=== PATIENT | female | born 1985 | race Caucasian/White ===

== ENCOUNTER 2016-06-17 06:22 | Inpatient (IN) | payer MEDICAID ==
[2016-06-14 10:01] LABS: APPEARANCE,URINE CLEAR; BILIRUBIN,URINE NEGATIVE (NEGATIVE); GLUCOSE, URINE NEGATIVE (NEGATIVE); KETONES,URINE NEGATIVE (NEGATIVE); LEUKOCYTE ESTERASE,URINE NEGATIVE (NEGATIVE); NITRITE,URINE NEGATIVE (NEGATIVE); PROTEIN,URINE NEGATIVE (NEGATIVE); UROBILINOGEN,URINE NEGATIVE mg/dL (<2.0)
[2016-06-14 10:02] LABS: ABSOLUTE LYMPHOCYTES (AUTO) 1.6 10^3/uL (0.5-4.7); ABSOLUTE MONOCYTES (AUTO) 0.4 10^3/uL (0.1-1.4); ABSOLUTE NEUT (AUTO) 4.8 10^3/uL (1.7-8.2); BASOPHILS % (AUTO) 0.6 % (0-2); EOSINOPHILS % (AUTO) 0.5 % (0-6); HEMATOCRIT 34.2 % (36.0-47.0); HGB HCT DIFFERENCE -1.2; LYMPHOCYTES % (AUTO) 23.5 % (13-45); MEAN CORPUSCULAR HEMOGLOBIN 27.8 pg (27.0-33.4); MEAN CORPUSCULAR HGB CONC 32.1 g/dL (32.0-36.0); MEAN CORPUSCULAR VOLUME 87 fl (80-97); MONOCYTES % (AUTO) 5.4 % (3-13); RED BLOOD COUNT 3.95 10^6/uL (3.72-5.28); RED CELL DISTRIBUTION WIDTH 14.3 % (11.5-14.0); WHITE BLOOD COUNT 6.9 10^3/uL (4.0-10.5)
[2016-06-14 10:21] LABS: URINE BARBITURATES SCREEN NEGATIVE; URINE METHADONE SCREEN NEGATIVE; URINE PHENCYCLIDINE SCREEN NEGATIVE
[2016-06-17] MEDS ORDERED: CEFAZOLIN INJ 1 GM VIAL ONE (06:25)
[2016-06-17] MEDS ORDERED: PROPOFOL INJ 200 MG/20 ML VIAL IV ONE (07:41)
[2016-06-17] MEDS ORDERED: FENTANYL CITRATE INJ/PF 100 MCG/2 ML AMPUL ONE (07:42)
[2016-06-17] MEDS ORDERED: MIDAZOLAM 2 MG/2 ML INJ ONE (07:42)
[2016-06-17] MEDS ORDERED: OXYTOCIN 10 UNIT/ML VIAL ONE (07:42)
[2016-06-17] MEDS ORDERED: PROMETHAZINE HCL INJ 25 MG/1 ML VIAL IV PRN (09:07)
[2016-06-17] MEDS ORDERED: HYDROMORPHONE HCL INJ/PF 2 MG/ML AMPULE IV PRN (09:07)
[2016-06-17] MEDS ORDERED: ACETAMINOPHEN 325 MG TABLET PO PRN (09:07)
[2016-06-17] MEDS ORDERED: DIPH/PERTUSS(ACELL)/TETANUS VAC/PF 0.5 ML SYR (>=10YO) IM PRN (09:07)
[2016-06-17] MEDS ORDERED: ACETAMINOPHEN 100 ML IV PRN (09:07)
[2016-06-17] MEDS ORDERED: SIMETHICONE 80 MG TAB.CHEW PO PRN (09:07)
[2016-06-17] MEDS ORDERED: MEASLES,MUMPS&RUBELLA VACC/PF 0.5 ML VIAL SUBCUT PRN (09:07)
[2016-06-17] MEDS ORDERED: OXYTOCIN/NORMAL SALINE 1,000 ML IV PRN (09:07)
[2016-06-17] MEDS ORDERED: RINGERS SOLUTION,LACTATED 1,000 ML IV PRN (09:07)
[2016-06-17] MEDS ORDERED: OXYCODONE-ACETAMINOPHEN 5-325 MG TABLET PO PRN (09:07)
--- NOTE | 2016-06-17 09:17 | Operative Report ---
Operative Report DATE OF SURGERY: 06/17/16 PREOPERATIVE DIAGNOSIS: Repeat tubal ligation to prevent risk for uterine rupture POSTOPERATIVE DIAGNOSIS: Same OPERATION: Repeat via low transverse uterine incision and tubal ligation with Filshie clips SURGEON: DARLENE BAIRES JUDICIAL ASSISTANT: OR staff TISSUE REMOVED OR ALTERED: Placenta and fallopian tubes COMPLICATIONS: None ESTIMATED BLOOD LOSS: 250 mL INTRAOPERATIVE FINDINGS: Normal pelvis and normal tubes and ovaries PROCEDURE: Patient was taken to the OR and placed in supine position after her spinal anesthesia. She is prepared and draped in sterile fashion. Brown was placed for drainage of the bladder. Low transverse incision was made and carried down the level of the fascia. The fascial incision was made with knife and extended bilaterally with curved Hammond scissors. The fascia was off the rectus muscles using sharp and blunt dissection. The rectus muscles are in the midline. The peritoneum was entered without incident. Bladder blade was placed in uterine segment was identified. A low transverse incision was made creating a bladder flap. Bladder blade was placed low transverse uterine incision was made with the knife and extended with fingertips. The baby was delivered with some fundal pressure. Mouth and nose were suctioned free. The cord is doubly clamped and cut. Baby is passed off to the illuminator in attendance. The placenta was manually extracted with trailing membranes. The uterus was not externalized. Uterine contents wiped free. Uterus was closed with a running locking layer of 0 chromic suture using the second layer to imbricate the first completing a double layer closure of the uterus. Each fallopian tube was identified and followed out to its fimbriated end. A Filshie clip was placed at the mid isthmic portion on each tube. The abdominal wall peritoneum was closed with running 2-0 chromic stitch. Fascia was closed with a running 0 Vicryl in 2 segments. Jessie's layer was brought together with 0 plain gut stitch and the skin was closed with running subcuticular 4-0 undyed Vicryl stitch. The wound was dressed mother and baby did well.
[2016-06-17] MEDS ORDERED: ACETAMINOPHEN 100 ML IV ONE (09:22)
[2016-06-17] MEDS ORDERED: KETOROLAC TROMETHAMINE INJ/PF 30 MG/1 ML SDV ONE (09:48)
[2016-06-17] MEDS: KETOROLAC TROMETHAMINE INJ/PF 30 MG/1 ML SDV IV SCH ×2 (10:11→17:05)
[2016-06-17] MEDS: DOCUSATE SODIUM 100 MG CAPSULE PO SCH ×2 (10:52→17:05)
[2016-06-17] MEDS: PRENATAL VITAMIN W-O CA NO5/FE FUMARATE/FA CAPSULE PO SCH (10:52)
[2016-06-17] MEDS ORDERED: LIDOCAINE 2% INJ-PF (20 MG/ML) 10 ML AMPUL ONE (11:57)
[2016-06-17] MEDS ORDERED: PHENYLEPHRINE HCL INJ/PF 10 MG/1 ML SDV ONE (11:57)
[2016-06-17] MEDS ORDERED: ONDANSETRON HCL INJ/PF 4 MG/2 ML SDV ONE ×2 (11:57→15:26)
[2016-06-17] MEDS ORDERED: ONDANSETRON HCL 8 MG TABLET PO PRN (15:35)
[2016-06-17] MEDS ORDERED: ONDANSETRON HCL INJ/PF 4 MG/2 ML SDV IV PRN (15:35)
--- NOTE | 2016-06-17 19:01 | L&D Flow Sheet ---
LD Flowsheet Datetime Report Generated by CPN: 06/17/2016 19:00 Datetime: 06/17/2016 11:00 Stage of : Recovery (Sommer Fifi, ) [facility] Pain Presence: Intermittent ([facility], RN) Pain Type: Cramping ([facility], ) Pain Location: Abdomen ([facility], ) Pain Goal: 1 ([facility], RN) Pain Relief Measures: Comfort Measures [facility] Datetime: 06/17/2016 10:52 Pulse: 57 (QS system process) SpO2 (%): 100 (QS system process) Datetime: 06/17/2016 10:47 Pulse: 57 (QS system process) SpO2 (%): 100 (QS system process) Datetime: 06/17/2016 10:45 Stage of : Recovery (Sommer aClix RN) Pain Scale: 1 (Sommer Calix RN) Pain Presence: Intermittent (Sommer Calix RN) Pain Type: Cramping (Sommer Calix RN) Pain Location: Abdomen (Sommer Calix RN) Pain Goal: 1 (Sommer Calix RN) Pain Relief Measures: Comfort Measures (Sommer Calix RN) Datetime: 06/17/2016 10:43 NBP Sys/Pat/Mean (mmHg): 112 (QS system process) : 75 (QS system process) : 90 (QS system process) Pulse: 63 (QS system process) Datetime: 06/17/2016 10:42 Pulse: 61 (QS system process) SpO2 (%): 100 (QS system process) Datetime: 06/17/2016 10:40 Stage of : Recovery (Sommer Dry Prong, RN) Datetime: 06/17/2016 10:37 Pulse: 62 (QS system process) SpO2 (%): 100 (QS system process) Datetime: 06/17/2016 10:32 Pulse: 56 (QS system process) SpO2 (%): 100 (QS system process) Datetime: 06/17/2016 10:30 Stage of : Recovery (Sommer Calix, CAT) Pain Scale: 2 (Sommer Calix, CAT) Pain Presence: Intermittent (Sommer Calix, CAT) Pain Type: Cramping (Sommer Calix RN) Pain Location: Abdomen (Sommer Calix, CAT) Pain Goal: 1 (Sommer Calix RN) Pain Relief Measures: Comfort Measures (Sommer Calix, CAT) Datetime: 06/17/2016 10:28 Stage of : Recovery (Sommer Calix, RN) NBP Sys/Pat/Mean (mmHg): 107 (QS system process) : 71 (QS system process) : 85 (QS system process) Pulse: 62 (QS system process) Respirations: 14 (Sommer Calix, ) Datetime: 06/17/2016 10:27 Pulse: 62 (QS system process) SpO2 (%): 100 (QS system process) Datetime: 06/17/2016 10:22 Pulse: 60 (QS system process) SpO2 (%): 99 (QS system process) Datetime: 06/17/2016 10:17 Pulse: 61 (QS system process) SpO2 (%): 99 (QS system process) Datetime: 06/17/2016 10:14 Stage of : Recovery (Sommer Calix RN) NBP Sys/Pat/Mean (mmHg): 114 (QS system process) : 74 (QS system process) : 87 (QS system process) Pulse: 62 (QS system process) Respirations: 12 (Sommer Calix RN) Pain Scale: 3 (Sommer Calix RN) Pain Presence: Intermittent (Sommer Calix RN) Pain Type: Cramping (Sommer Calix RN) Pain Location: Abdomen (Sommer Calix RN) Pain Goal: 1 (Sommer Calix RN) Pain Relief Measures: Comfort Measures (Sommer Calix RN) Datetime: 06/17/2016 10:12 Pulse: 62 (QS system process) SpO2 (%): 99 (QS system process) Datetime: 06/17/2016 10:11 Stage of : Recovery (Sommer Calix, ) Pain Scale: 3 (Sommer Calix, ) Pain Presence: Intermittent (Sommer Calix, ) Pain Type: Cramping (Sommer Calix, ) Pain Location: Abdomen (Sommer Calix, ) Pain Goal: 1 (Sommer Calix, ) Pain Relief Measures: Pain Medication Given; Comfort Measures (Sommer Dry Prong, ) Datetime: 06/17/2016 10:07 Pulse: 66 (QS system process) SpO2 (%): 98 (QS system process) Datetime: 06/17/2016 10:02 Pulse: 63 (QS system process) SpO2 (%): 99 (QS system process) Datetime: 06/17/2016 10:00 Stage of : Recovery (Sommer Fifi, RN) Pain Scale: 2 (Sommer Dry Prong, RN) Pain Presence: Intermittent (Sommer Dry Prong, RN) Pain Type: Cramping; Ache (Sommer Fifi, RN) Pain Location: Abdomen (Sommer Fifi, RN) Pain Goal: 1 (Sommer Dry Prong, RN) Pain Relief Measures: Comfort Measures (Sommer Dry Prong, RN) Datetime: 06/17/2016 09:58 Stage of : Recovery (Sommer Calix, RN) NBP Sys/Pat/Mean (mmHg): 109 (QS system process) : 76 (QS system process) : 88 (QS system process) Pulse: 62 (QS system process) Respirations: 16 (Sommer Patiñoard, RN) Datetime: 06/17/2016 09:57 Pulse: 68 (QS system process) SpO2 (%): 98 (QS system process) Datetime: 06/17/2016 09:52 Pulse: 72 (QS system process) SpO2 (%): 97 (QS system process) Datetime: 06/17/2016 09:47 Pulse: 64 (QS system process) SpO2 (%): 97 (QS system process) Datetime: 06/17/2016 09:45 Stage of : Recovery (Sommer Calix RN) Pain Scale: 3 (Sommer Calix RN) Pain Presence: Intermittent (Sommer Calix RN) Pain Type: Cramping; Ache (Sommer Calix RN) Pain Location: Abdomen (Sommer Calix RN) Pain Goal: 1 (Sommer Calix RN) Pain Relief Measures: Comfort Measures (Sommer Calix RN) Datetime: 06/17/2016 09:43 Stage of : Recovery (Sommer Calix RN) NBP Sys/Pat/Mean (mmHg): 110 (QS system process) : 72 (QS system process) : 85 (QS system process) Pulse: 71 (QS system process) Respirations: 16 (Sommer Dry Prong, RN) Datetime: 06/17/2016 09:42 Pulse: 67 (QS system process) SpO2 (%): 97 (QS system process) Datetime: 06/17/2016 09:37 Pulse: 70 (QS system process) SpO2 (%): 97 (QS system process) Datetime: 06/17/2016 09:36 Stage of : Recovery (Sommer Calix, CAT) Pain Scale: 2 (Sommer Calix RN) Pain Presence: Intermittent (Sommer Dry Prong, RN) Pain Type: Cramping (Sommer Patiñoard, RN) Pain Location: Abdomen (Sommer Patiñoard, RN) Pain Goal: 1 (Sommer Patiñoard, RN) Pain Relief Measures: Pain Medication Given; Comfort Measures (Sommer Patiñoard, RN) Datetime: 06/17/2016 09:34 Stage of : Recovery (Sommer Calix, RN) Datetime: 06/17/2016 09:32 Pulse: 69 (QS system process) SpO2 (%): 98 (QS system process) Datetime: 06/17/2016 09:29 Stage of : Recovery (Sommer Calix RN) NBP Sys/Pat/Mean (mmHg): 104 (QS system process) : 69 (QS system process) : 83 (QS system process) Pulse: 61 (QS system process) Respirations: 14 (Sommer Calix RN) Pain Scale: 0 (Sommer Calix RN) Pain Presence: None/Denies (Sommer Calix RN) Pain Type: N/A (Sommer Calix RN) Pain Goal: 1 (Sommer Calix RN) Pain Relief Measures: Comfort Measures (Sommer Calix RN) Datetime: 06/17/2016 09:27 Pulse: 67 (QS system process) SpO2 (%): 100 (QS system process) Datetime: 06/17/2016 09:22 Pulse: 66 (QS system process) SpO2 (%): 99 (QS system process) Datetime: 06/17/2016 09:17 Pulse: 68 (QS system process) SpO2 (%): 100 (QS system process) Datetime: 06/17/2016 09:15 Stage of : Recovery (Sommer Calix, RN) Pain Scale: 0 (Sommer Calix, RN) Pain Presence: None/Denies (Sommer Fifi, RN) Pain Type: N/A (Sommer Patiñoard, RN) Pain Goal: 1 (Sommer Patiñoard, RN) Pain Relief Measures: Comfort Measures (Sommer Calix, RN) Datetime: 06/17/2016 09:12 Stage of : Recovery (Sommer Calix RN) NBP Sys/Pat/Mean (mmHg): 109 (QS system process) : 63 (QS system process) : 80 (QS system process) Pulse: 69 (QS system process) Pulse: 72 (QS system process) Respirations: 12 (Sommer Calix RN) SpO2 (%): 98 (QS system process) Datetime: 06/17/2016 09:07 Stage of : Recovery (Sommer Calix RN) NBP Sys/Pat/Mean (mmHg): 108 (QS system process) : 63 (QS system process) : 78 (QS system process) Pulse: 77 (QS system process) Pulse: 74 (QS system process) SpO2 (%): 99 (QS system process) Temperature (F): 97.6 (Sommer Calix RN) Temperature (C): 36.4 (QS system process) Temperature Route: Oral (Sommer Calix RN) Pain Scale: 0 (Sommer Calix RN) Pain Presence: None/Denies (Sommer Calix RN) Pain Type: N/A (Sommer Calix RN) Pain Goal: 1 (Sommer Calix RN) Pain Relief Measures: Comfort Measures (Annotations: T10) (Sommer Calix RN) Datetime: 06/17/2016 09:04 Stage of : Recovery (Sommer Calix RN) NBP Sys/Pat/Mean (mmHg): 111 (QS system process) : 62 (QS system process) : 80 (QS system process) Pulse: 76 (QS system process) Respirations: 14 (Sommer Calix RN) Datetime: 06/17/2016 09:02 Pulse: 76 (QS system process) SpO2 (%): 98 (QS system process) Datetime: 06/17/2016 09:00 Stage of : Recovery (Sommer Calix RN) NBP Sys/Pat/Mean (mmHg): Guerline Perez RN and Sanju Lock CRNA (Sommer Calix RN)
[2016-06-18] MEDS: KETOROLAC TROMETHAMINE INJ/PF 30 MG/1 ML SDV IV SCH (01:28)
--- NOTE | 2016-06-18 06:03 | L&D General Admission ---
General Admit Datetime Report Generated by CPN: 06/18/2016 06:00 INFORMATION Patient Age: 30 (02/11/2016 19:09:QS system process) CARE Height (in): 63 (06/17/2016 15:03:QS system process) ALLERGIES Medication Allergies: No Known Allergies (06/14/2016) (06/17/2016 06:22:QS system process) DEMOGRAPHICS Address: [address] [place] [phone] (02/11/2016 19:09:QS system process) Zipcode: [phone] (02/11/2016 19:09:QS system process) Home (02/11/2016 19:09:QS system process) Work (02/11/2016 19:09:QS system process) SSN: [id number] (02/11/2016 19:09:QS system process) Next of Kin Name: MARCO RIVERA (02/11/2016 19:09:QS system process) Next of Kin (02/11/2016 19:09:QS system process) Next of Kin Relationship: SPO (02/11/2016 19:09:QS system process) Date of : 1985 (02/11/2016 19:09:QS system process) Marital Status: (02/11/2016 19:09:QS system process) Sex: Female (02/11/2016 19:09:QS system process) Race: (02/11/2016 19:09:QS system process) Ethnicity: Non- or (02/11/2016 19:09:QS system process) Restorationism: Other (02/11/2016 19:09:QS system process) Feeding Preference: Breast (06/17/2016 09:28:Barbie Rust RN) Benefit of Breast Feed Discussed: Yes (06/17/2016 09:28:Gely Reno RN) LABS Hemoglobin: 11.0 L (06/14/2016 09:17:QS system process) Hematocrit: 34.2 L (06/14/2016 09:17:QS system process) MCV: 87 (06/14/2016 09:17:QS system process)
[2016-06-18 07:35] LABS: MEAN CORPUSCULAR HEMOGLOBIN 27.6 pg (27.0-33.4); MEAN CORPUSCULAR HGB CONC 32.3 g/dL (32.0-36.0); MEAN CORPUSCULAR VOLUME 85 fl (80-97); RED BLOOD COUNT 3.99 10^6/uL (3.72-5.28); RED CELL DISTRIBUTION WIDTH 14.5 % (11.5-14.0); WHITE BLOOD COUNT 9.5 10^3/uL (4.0-10.5)
[2016-06-18 07:37] LABS: PARTIAL THROMBOPLASTIN TIME 24.4 SEC (23.5-35.8); PROTHROMBIN TIME 12.1 SEC (11.4-15.4)
[2016-06-18 07:48] LABS: CREATININE RESULT 0.75 mg/dL (0.52-1.25)
[2016-06-18] MEDS: IBUPROFEN 800 MG TABLET PO SCH ×3 (08:31→20:56)
[2016-06-18] MEDS ORDERED: ENOXAPARIN SODIUM SUBCUT SCH (10:00)
[2016-06-18] MEDS: DOCUSATE SODIUM 100 MG CAPSULE PO SCH ×2 (11:18→17:53)
[2016-06-18] MEDS: PRENATAL VITAMIN W-O CA NO5/FE FUMARATE/FA CAPSULE PO SCH (11:18)
[2016-06-18] MEDS ORDERED: ENOXAPARIN SODIUM INJ 30 MG/0.3 ML DISP.SYRIN SUBCUT ONE (12:00)
--- NOTE | 2016-06-18 13:45 | PDOC PROGRESS REPORT ---
Subjective-OB Subjective: Post Delivery Day: 30 year old. Denies any needs at this time s/p repeat c section lungs ctab s1s2 no murmur abdominal binding in place incision dry and intact bsx4 no flatus no bm encouraged pt to ambulate reports walking well well eating regular diet anticipate d/c in am Physical Exam (OB) Vital Signs: Temp Pulse Resp BP Pulse Ox 98.6 F 70 16 109/63 98 06/18/16 12:17 06/18/16 12:17 06/18/16 12:17 06/18/16 12:17 06/18/16 12:17 Intake & Output 06/17/16 06/18/16 06/19/16 06:59 06:59 06:59 Intake Total 3025 Output Total 5150 Balance -2125 Weight 63.049 kg - Dressing Removed: No - op site Incision: Dressing - Lochia Lochia Amount: Small 10-25 ml Lochia Color: Rubra/Red - Abdomen Description: Soft Hernia Present: No Fundal Description: Firm, Midline Fundal Height: u/u - u/2 Objective-Diagnostic Laboratory: 06/18/16 07:14 06/18/16 07:14 06/18/16 06/18/16 07:14 07:14 WBC 9.5 RBC 3.99 Hgb 11.0 L Hct 34.0 L MCV 85 MCH 27.6 MCHC 32.3 RDW 14.5 H Plt Count 216 Creatinine 0.75 Est GFR ( Amer) > 60 Est GFR (Non-Af Amer) > 60
[2016-06-18] MEDS: OXYCODONE-ACETAMINOPHEN 5-325 MG TABLET PO PRN ×2 (15:06→22:39)
--- NOTE | 2016-06-18 18:05 | L&D General Admission ---
General Admit Datetime Report Generated by CPN: 06/18/2016 18:00 INFORMATION Patient Age: 30 (02/11/2016 19:09:QS system process) CARE Height (in): 63 (06/18/2016 14:34:QS system process) ALLERGIES Medication Allergies: No Known Allergies (06/14/2016) (06/17/2016 06:22:QS system process) DEMOGRAPHICS Address: [address] [place] [phone] (02/11/2016 19:09:QS system process) Zipcode: [phone] (02/11/2016 19:09:QS system process) Home (02/11/2016 19:09:QS system process) Work (02/11/2016 19:09:QS system process) SSN: [id number] (02/11/2016 19:09:QS system process) Next of Kin Name: MARCO RIVERA (02/11/2016 19:09:QS system process) Next of Kin (02/11/2016 19:09:QS system process) Next of Kin Relationship: SPO (02/11/2016 19:09:QS system process) Date of : 1985 (02/11/2016 19:09:QS system process) Marital Status: (02/11/2016 19:09:QS system process) Sex: Female (02/11/2016 19:09:QS system process) Race: (02/11/2016 19:09:QS system process) Ethnicity: Non- or (02/11/2016 19:09:QS system process) Yarsani: Other (02/11/2016 19:09:QS system process) Feeding Preference: Breast (06/17/2016 09:28:Barbie Rust RN) Benefit of Breast Feed Discussed: Yes (06/17/2016 09:28:Gely Reno RN) LABS Hemoglobin: 11.0 L (06/18/2016 07:14:QS system process) Hematocrit: 34.0 L (06/18/2016 07:14:QS system process) MCV: 85 (06/18/2016 07:14:QS system process)
[2016-06-18] MEDS: ENOXAPARIN SODIUM INJ 30 MG/0.3 ML DISP.SYRIN SUBCUT SCH (22:35)
[2016-06-19] MEDS: IBUPROFEN 800 MG TABLET PO SCH ×2 (03:45→09:48)
--- NOTE | 2016-06-19 06:05 | L&D General Admission ---
General Admit Datetime Report Generated by CPN: 06/19/2016 06:00 INFORMATION Patient Age: 30 (02/11/2016 19:09:QS system process) CARE Height (in): 63 (06/18/2016 14:34:QS system process) ALLERGIES Medication Allergies: No Known Allergies (06/14/2016) (06/17/2016 06:22:QS system process) DEMOGRAPHICS Address: [address] [place] [phone] (02/11/2016 19:09:QS system process) Zipcode: [phone] (02/11/2016 19:09:QS system process) Home (02/11/2016 19:09:QS system process) Work (02/11/2016 19:09:QS system process) SSN: [id number] (02/11/2016 19:09:QS system process) Next of Kin Name: MARCO RIVERA (02/11/2016 19:09:QS system process) Next of Kin (02/11/2016 19:09:QS system process) Next of Kin Relationship: SPO (02/11/2016 19:09:QS system process) Date of : 1985 (02/11/2016 19:09:QS system process) Marital Status: (02/11/2016 19:09:QS system process) Sex: Female (02/11/2016 19:09:QS system process) Race: (02/11/2016 19:09:QS system process) Ethnicity: Non- or (02/11/2016 19:09:QS system process) Zoroastrianism: Other (02/11/2016 19:09:QS system process) Feeding Preference: Breast (06/17/2016 09:28:Barbie Rust RN) Benefit of Breast Feed Discussed: Yes (06/17/2016 09:28:Gely Reno RN) LABS Hemoglobin: 11.0 L (06/18/2016 07:14:QS system process) Hematocrit: 34.0 L (06/18/2016 07:14:QS system process) MCV: 85 (06/18/2016 07:14:QS system process)
[2016-06-19] MEDS: OXYCODONE-ACETAMINOPHEN 5-325 MG TABLET PO PRN (07:57)
[2016-06-19 09:26] VITALS: BP 123/71
[2016-06-19] MEDS: ENOXAPARIN SODIUM INJ 30 MG/0.3 ML DISP.SYRIN SUBCUT SCH (09:47)
[2016-06-19] MEDS: PRENATAL VITAMIN W-O CA NO5/FE FUMARATE/FA CAPSULE PO SCH (09:48)
[2016-06-19] MEDS: DOCUSATE SODIUM 100 MG CAPSULE PO SCH (09:48)
--- NOTE | 2016-06-19 09:56 | PDOC DISCHARGE SUMMARY ---
Final Diagnosis Discharge Date: 06/19/16 - Final Diagnosis (1) Status post repeat low transverse section Is this a current diagnosis for this admission?: Yes (2) Admission for tubal ligation Is this a current diagnosis for this admission?: Yes Discharge Data - Discharge Medication Home Medications: Enoxaparin Sodium [Lovenox] 30 mg SUBCUT BID 07/23/13 Vit#96/Ferrous Fum/FA [ Tablet] 1 each PO DAILY 07/23/13 Acetaminophen [Tylenol 325 mg Tablet] 650 mg PO Q4HP PRN 07/26/13 Ibuprofen [Motrin 800 mg Tablet] 800 mg PO Q8HP PRN #90 tablet 06/19/16 Oxycodone HCl/Acetaminophen [Percocet 5-325 mg Tablet] 1 tab PO Q4HP PRN #30 tablet 06/19/16 Reason(s) for Admission: Ceasarean Section-Repeat, Tubal Ligation Procedures: NST, Ultrasound Intrapartum Procedure(s): : Low Cervical, Transverse, Tubal Ligation - [place]arks Data Baby 1 Female at 1 minute: 8 at 5 minutes: 9 Weight: 3.005 kg Home with Mother: Yes Complications: No - Diagnosis Test Laboratory: Temp Pulse Resp BP Pulse Ox 97.8 F 78 17 123/71 97 06/19/16 09:04 06/19/16 09:04 06/19/16 09:04 06/19/16 09:04 06/19/16 09:04 06/14/16 06/14/16 06/18/16 09:17 09:25 07:14 RBC 3.95 3.99 Hgb 11.0 L 11.0 L Hct 34.2 L 34.0 L Urine Opiates Screen NEGATIVE - Discharge information/Instructions Discharge Activity: Activity As Tolerated, Balance Activity w/Rest, No Driving, No Lifting Over 10 Pounds, No Lifting/Push/Pulling, Pelvic Rest, No tub bath Discharge Diet: As Tolerated, Regular Disposition: HOME, SELF-CARE Follow up with: [facility] in: 1, Weeks - incision check Physical Exam (OB) Vital Signs: Temp Pulse Resp BP Pulse Ox 97.8 F 78 17 123/71 97 06/19/16 09:04 06/19/16 09:04 06/19/16 09:04 06/19/16 09:04 06/19/16 09:04 Intake & Output 06/18/16 06/19/16 06/20/16 06:59 06:59 06:59 Intake Total 3025 Output Total 5150 Balance -2125 - General General Appearance: Appears well In distress: None - Dressing Removed: No - op site Incision: Dressing Closure Type: opsite - Bilateral Tubal Ligation Dressing Removed: Yes - opsite Site: Dressing - Lochia Lochia Amount: Small 10-25 ml Lochia Color: Serosa/Brown - Abdomen Description: Soft Hernia Present: No Bowel Sounds: Normoactive Flatus Presence: Present Stool: No Fundal Description: Firm, Midline Fundal Height: u/u - u/2 - Respiratory Respiratory Status: No respiratory distress Breath sounds: Clear - Cardiovascular Rhythm: Regular Heart Sounds: Normal auscultation - Abdominal Abdominal Notes: BS present - Genitourinary Female External exam: Normal - Extremities Upper extremity: Normal inspection Lower extremities: Normal inspection - Psychological Associated symptoms: Normal affect, Normal mood - bonding well with baby, without difficulty
== END 2016-06-19 13:00 | disposition home or self-care (01) | DRG 765 ==
LOC: 2N 06:22 → 2S 09:04
PROVIDERS: ADMIT Obstetrics & Gynecology; ATTEND Obstetrics & Gynecology
PROC: 0UL70CZ Occlusion of Bilateral Fallopian Tubes with Extraluminal Device, Open Approach (ICD-10-PCS; 2016-06-17)
PROC: 4A1HXCZ Monitoring of Products of Conception, Cardiac Rate, External Approach (ICD-10-PCS; 2016-06-17)
PROC: 10D00Z1 Extraction of Products of Conception, Low, Open Approach (ICD-10-PCS; principal; 2016-06-17 07:45)
DX: O34.211 Maternal care for low transverse scar from previous cesarean delivery (principal); O99.12 Other diseases of the blood and blood-forming organs and certain disorders involving the immune mechanism complicating childbirth; D68.59 Other primary thrombophilia; Z30.2 Encounter for sterilization; Z3A.39 39 weeks gestation of pregnancy; Z37.0 Single live birth
CPT/HCPCS: 1961; 36415; 80307; 81001; 82565; 85025; 85027; 85610; 85730; 86850; 86900; 86901; 90715; 94799; J0131; J1170; J1650; J1885; J2250; J2370; J2405; J2590; J2704; J3010; J3490

== ENCOUNTER 2016-09-16 10:16 | Emergency (ER) | payer MEDICAID ==
--- NOTE | 2016-09-16 11:50 | ER Document Report ---
HPI - HPI Patient complains to provider of: pilonidal cyst Onset: Other - Friday Morning Onset/Duration: Sudden Pain Level: 2 Context: 33-year-old female with history of a pilonidal abscess that had to be incised 9 years ago is here again where there is pain and swelling but not as bad in the same area. No fever or chills Associated Symptoms: None Exacerbated by: Walking Relieved by: Denies Similar symptoms previously: Yes - 9 years ago Recently seen / treated by doctor: No - ROS ROS below otherwise negative: Yes Systems Reviewed and Negative: Yes All other systems reviewed and negative - REPRODUCTIVE LMP: post- Reproductive: REPORTS: : - DERM Skin Color: Normal, [place] Past Medical History - General Information source: Patient - Social History Smoking Status: Never Smoker Frequency of alcohol use: None Drug Abuse: None Lives with: Spouse/Significant other Family History: Reviewed & Not Pertinent Patient has suicidal ideation: No Patient has homicidal ideation: No Renal/ Medical History: Denies: Hx Peritoneal Dialysis Past Surgical History: Reports: Hx Section - Immunizations Hx Diphtheria, Pertussis, Tetanus Vaccination: No - declined Vertical Provider Document - CONSTITUTIONAL Agree With Documented VS: Yes Exam Limitations: No Limitations - INFECTION CONTROL TRAVEL OUTSIDE OF THE [place] IN LAST 30 DAYS: No - HEENT HEENT: Normocephalic - NECK Neck: Supple - RESPIRATORY O2 Sat by Pulse Oximetry: 99 - MUSCULOSKELETAL/EXTREMETIES Musculoskeletal/Extremeties: MAEW, FROM - NEURO Level of Consciousness: Awake, Alert Motor/Sensory: No Motor Deficit, No Sensory Deficit - DERM Integumentary: Warm, Dry, Abscess - Small tender non-red soft tissue swelling at the gluteal crest Course - Vital Signs Vital signs: Temp Pulse Resp BP Pulse Ox 98.2 F 72 16 113/86 H 99 09/16/16 10:44 09/16/16 10:44 09/16/16 10:44 09/16/16 10:44 09/16/16 10:44 Procedures - Incision and Drainage Buttock Time completed: 13:41 Type: Simple Anesthetic type: 1% Lidocaine mL's of anesthetic: 5 Blade size: 11 I&D procedure: Betadine prep applied, Sterile dressing applied - corner of 4 x 4 gauze packing Incision Method: Incision made by scalpel Amount/type of drainage: moderate pus Discharge - Discharge Clinical Impression: I & D pilonidal abscess Condition: Good Disposition: HOME, SELF-CARE Instructions: Abscess ([facility]), Post Incision and Drainage, Trimethoprim-Sulfa ( [facility]), Oral Narcotic Medication ([facility]) Additional Instructions: warm compress shower starting tomorrow use washclothe vigorously with antibacteriala soap to er if worse Please complete the patient satisfaction survey if you get one, and return it.. If you do not receive a survey, then you can go to the [facility] website, [email or web address] and place your comments about your very good care. Thank you very much. It was a pleasure being your medical provider today. Prescriptions: Oxycodone HCl/Acetaminophen [Percocet 5-325 mg Tablet] 1 - 2 tab PO ASDIR PRN # 10 tablet PRN Reason: Sulfamethoxazole/Trimethoprim [Sulfamethoxazole-Tmp Ds Tablet] 1 each PO BID # 14 tablet Forms: Return to Work
[2016-09-16] MEDS ORDERED: ACETAMINOPHEN 325 MG TABLET PO ONE (11:52)
[2016-09-16] MEDS ORDERED: LIDOCAINE 4%/TETRACAINE 0.5%/EPI 0.18% 5 ML TOPICAL SOLN TOP ONE (12:27)
[2016-09-16] MEDS ORDERED: OXYCODONE HCL IR 5 MG TABLET PO ONE (12:27)
[2016-09-16] MEDS ORDERED: ONDANSETRON 4 MG TAB.RAPDIS PO ONE (12:33)
[2016-09-16] MEDS ORDERED: SULFAMETHOXAZOLE/TRIMETHOPRIM 800-160 MG TABLET PO ONE (12:33)
[2016-09-16 14:16] VITALS: BP 115/80
== END 2016-09-16 14:13 | disposition home or self-care (01) ==
LOC: ER 10:16
PROC: 0H98XZZ Drainage of Buttock Skin, External Approach (ICD-10-PCS; principal; 2016-09-16)
DX: L05.01 Pilonidal cyst with abscess (principal)
CPT/HCPCS: 99283; 10080; S0119; J3490 ×3

== ENCOUNTER → 2018-08-12 | Outpatient (CLI) | payer BC ==
--- NOTE | 2018-08-12 13:35 | RADIOLOGY REPORT (SQ) ---
EXAM DESCRIPTION: FOOT LEFT COMPLETE COMPLETED DATE/TIME: 08/12/2018 1:29 pm REASON FOR STUDY: UNSPECIFIED INJURY OF LEFT FOOT, INITIAL ENCOUNTER S99.922A UNSPECIFIED INJURY OF LEFT FOOT, INITIAL ENCOUNTER COMPARISON: None. NUMBER OF VIEWS: Three views. TECHNIQUE: AP, lateral and oblique radiographic images acquired of the left foot. LIMITATIONS: None. FINDINGS: MINERALIZATION: Normal. BONES: Obliquely oriented nondisplaced midshaft fracture of the 4th proximal phalanx. No definite in tra-articular extension. No additional fractures visualized JOINTS: No effusions. SOFT TISSUES: Soft tissue swelling about the 3rd through 5th distal digits. OTHER: No other significant finding. IMPRESSION: Obliquely oriented nondisplaced midshaft fracture of the 4th proximal phalanx. Associat ed soft tissue swelling about the distal foot. TECHNICAL DOCUMENTATION: JOB ID: [id number] [employer]- All Rights Reserved Reading location - IP/workstation name: [email or web address]
== END ==
LOC: OD 13:12
PROVIDERS: ATTEND Family Medicine
DX: S92.515A Nondisplaced fracture of proximal phalanx of left lesser toe(s), initial encounter for closed fracture (principal); X58.XXXA Exposure to other specified factors, initial encounter